=== PATIENT | female | born 1985 | race Two or more races ===

== ENCOUNTER 2017-09-27 14:32 | Emergency (ER) | payer SELFPAY ==
[~2017-09-27] VITALS: Ht 162.6 cm; Wt 62.6 kg
[2017-09-27 14:36] VITALS: BP 116/61
== END 2017-09-27 15:27 | disposition home or self-care (01) ==
LOC: ER 14:34
DX: O9A.211 Injury, poisoning and certain other consequences of external causes complicating pregnancy, first trimester (principal); S01.81XA Laceration without foreign body of other part of head, initial encounter; O99.281 Endocrine, nutritional and metabolic diseases complicating pregnancy, first trimester; E03.9 Hypothyroidism, unspecified; Z3A.01 Less than 8 weeks gestation of pregnancy; Z91.018 Allergy to other foods; W22.8XXA Striking against or struck by other objects, initial encounter; Y93.89 Activity, other specified; Y92.89 Other specified places as the place of occurrence of the external cause; Y99.8 Other external cause status
CPT/HCPCS: A4606; Z7502; Z7610